=== PATIENT | female | born 1955 | race Caucasian/White ===

== ENCOUNTER 2017-12-31 06:09 | Day surgery (SDC) | payer BC ==
[~2017-12-31] VITALS: Ht 162.6 cm; Wt 62.4 kg
[~2017-12-31 06:09] MED LIST: EXEM25 PO; SIMV40 PO
[2017-12-31] MEDS ORDERED: LOSA50 PO (06:44)
[2017-12-31] MEDS ORDERED: MYCOPHENOLATE250 MG PO (06:45)
[2017-12-31] MEDS ORDERED: Omeprazole20 M1 (06:45)
== END 2017-12-31 08:40 | disposition home or self-care (01) ==
LOC: ORSCSDS 06:09
PROVIDERS: Orthopaedic Surgery
PROC: 0LN70ZZ Release Right Hand Tendon, Open Approach (ICD-10-PCS; principal; 2017-12-31 07:30)
DX: M65.331 Trigger finger, right middle finger (principal); M65.341 Trigger finger, right ring finger; I10 Essential (primary) hypertension; F17.210 Nicotine dependence, cigarettes, uncomplicated; K21.9 Gastro-esophageal reflux disease without esophagitis; Z79.899 Other long term (current) drug therapy
CPT/HCPCS: J0171; J2250; J3010; J7120

== ENCOUNTER → 2019-03-04 | Outpatient (CLI) | payer BC ==
[~2019-03-04] MED LIST changes: +ACET325 PO; +ASPI81CH PO; +IBUP400 PO; +LOSA50 PO; +MYCOPHENOLATE250 MG PO; +Omeprazole20 M1 PO
[2019-03-04 12:49] LABS: BASOPHILS ABSOLUTE AUTO 0.02 K/mm3 (0.00-0.23); BASOPHILS PERCENT AUTO 0 % (0-2); EOSINOPHILS ABSOLUTE AUTO 0.03 K/mm3 (0.00-0.68); EOSINOPHILS PERCENT AUTO 0 % (0-6); Hematocrit 40.5 % (33.0-51.0); Hemoglobin 13.4 g/dL (11.5-16.0); IMMATURE GRAN ABSOLUTE AUTO 0.03 K/mm3 (0.00-0.10); IMMATURE GRAN PERCENT AUTO 0 % (0-1); LYMPHOCYTES ABSOLUTE AUTO 1.54 K/mm3 (0.84-5.20); LYMPHOCYTES PERCENT AUTO 17 % (21-46); MONOCYTES ABSOLUTE AUTO 0.76 K/mm3 (0.16-1.47); MONOCYTES PERCENT AUTO 8 % (4-13); Mean Corpuscular HGB 31.8 pg (26.0-34.0); Mean Corpuscular HGB Conc 33.1 g/dL (31.5-36.5); Mean Corpuscular Volume 96 fL (80-100); Mean Platelet Volume 10.7 fL (9.1-12.4); NEUTROPHILS ABSOLUTE AUTO 6.64 K/mm3 (1.96-9.15); NEUTROPHILS PERCENT AUTO 74 % (41-73); Platelet Count 210 K/mm3 (150-400); RDW Coefficient Variation 11.9 % (11.7-14.2); RDW Standard Deviation 41.8 fL (35.1-46.3); Red Blood Cell Count 4.21 M/mm3 (3.80-5.20); White Blood Cell Count 9.02 K/mm3 (4.00-11.30)
[2019-03-04 13:07] LABS: Anion Gap 11 mmol/L (6-16); Blood Urea Nitrogen 12 mg/dL (8-24); Bun/Creatinine Ratio 11.4 (12.0-20.0); CO2, Blood 25 mmol/L (21-32); Calcium, Blood 8.6 mg/dL (8.5-10.1); Chloride, Blood 104 mmol/L (98-108); Creatinine, Blood 1.05 mg/dL (0.40-1.00); Glomerular Filtration Rate 53 (60-); Glucose, Blood 117 mg/dL (70-99); Potassium, Blood 3.2 mmol/L (3.5-5.5); Sodium, Blood 140 mmol/L (136-145); Troponin I <0.017 ng/mL (0.000-0.040)
== END | disposition home or self-care (01) ==
LOC: LAB SHORT 12:42 → LAB EV 12:42
PROVIDERS: Physician Assistant Surgical
DX: R07.81 Pleurodynia (principal)
CPT/HCPCS: 80048; 84484; 85025; 85379

== ENCOUNTER → 2020-01-04 | Outpatient (CLI) | payer BC ==
[~2020-01-04] MED LIST changes: +LOSARTAN POTAS100 M1 PO; +ZOCOR20 MG PO
== END | disposition home or self-care (01) ==
LOC: LAB 13:05 → LAB SHORT 13:05
DX: L03.115 Cellulitis of right lower limb (principal); L02.415 Cutaneous abscess of right lower limb
CPT/HCPCS: 87070; 87205

== ENCOUNTER 2020-05-28 18:46 | Inpatient (IN) | payer BC, MEDICARE ==
[~2020-05-28] VITALS: Ht 157.5 cm; Wt 61.2 kg
[~2020-05-28 18:46] MED LIST changes: -ACIDOPHILUS1 EAC1 PO; -CIPR500 PO; -HYDR1TAB94 PO; -METR500 PO; -MIRALAX17 G3 PO; -ONDA4ODT PO
[2020-05-28 20:47] LABS: Source, Urine Clean Catch
[2020-05-28 20:52] LABS: BASOPHILS ABSOLUTE AUTO 0.04 K/mm3 (0.00-0.23); BASOPHILS PERCENT AUTO 0 % (0-2); EOSINOPHILS ABSOLUTE AUTO 0.02 K/mm3 (0.00-0.68); EOSINOPHILS PERCENT AUTO 0 % (0-6); Hematocrit 45.8 % (33.0-51.0); Hemoglobin 14.9 g/dL (11.5-16.0); IMMATURE GRAN ABSOLUTE AUTO 0.04 K/mm3 (0.00-0.10); IMMATURE GRAN PERCENT AUTO 0 % (0-1); LYMPHOCYTES PERCENT AUTO 12 % (21-46); MONOCYTES ABSOLUTE AUTO 0.66 K/mm3 (0.16-1.47); MONOCYTES PERCENT AUTO 5 % (4-13); Mean Corpuscular HGB 30.7 pg (26.0-34.0); Mean Corpuscular HGB Conc 32.5 g/dL (31.5-36.5); Mean Corpuscular Volume 94 fL (80-100); NEUTROPHILS ABSOLUTE AUTO 12.11 K/mm3 (1.96-9.15); NEUTROPHILS PERCENT AUTO 83 % (41-73); Platelet Count 284 K/mm3 (150-400); RDW Coefficient Variation 12.5 % (11.7-14.2); RDW Standard Deviation 43.1 fL (35.1-46.3); Red Blood Cell Count 4.86 M/mm3 (3.80-5.20); White Blood Cell Count 14.57 K/mm3 (4.00-11.30)
[2020-05-28 20:55] LABS: Appearance, Urine Clear (Clear); Bilirubin, Urine Neg (Neg); Blood, Urine 3+ (Neg); Color, Urine Yellow (P-Yellow); Glucose Qualitative, Urine Neg (Neg); Ketones, Urine Neg (Neg); Leukocyte Esterase, Urine 3+ (Neg); Nitrite, Urine Neg (Neg); Protein, Urine Neg (Neg); Urobilinogen, Urine NORM (Normal)
[2020-05-28 21:29] LABS: Bacteria Few /hpf; Mucus Light (0-Heavy); Squamous Epithelial Cells Few /hpf (Few)
[2020-05-28 21:33] LABS: Alanine Aminotransfer (ALT/SGP 18 U/L (12-78); Albumin, Blood 3.6 g/dL (3.4-5.0); Alk Phos 96 U/L (50-136); Anion Gap 5 mmol/L (6-16); Aspartate Aminotrans (AST/SGOT 28 U/L (12-37); Bilirubin, Total 0.5 mg/dL (0.1-1.0); Blood Urea Nitrogen 12 mg/dL (8-24); Bun/Creatinine Ratio 13.4 (12.0-20.0); CO2, Blood 27 mmol/L (21-32); Calcium, Blood 8.9 mg/dL (8.5-10.1); Chloride, Blood 110 mmol/L (98-108); Creatinine, Blood 0.89 mg/dL (0.40-1.00); Globulin, Blood 3.7 g/dL (2.2-4.0); Glomerular Filtration Rate >60 (60-); Glucose, Blood 106 mg/dL (70-99); Potassium, Blood 4.3 mmol/L (3.5-5.5); Sodium, Blood 142 mmol/L (136-145); Total Protein, Blood 7.3 g/dL (6.4-8.2)
--- NOTE | 2020-05-29 03:40 | NUR ---
PT ADMITTED FROM ER FOR DIVERTICULITIS AT APPROX 0240. DENIES PAIN UPON ARRIVAL BUT REPORTS HAVING SEVERE PAIN SINCE WEDNESDAY. DENIES N/V. VSS. LABETOLOL AVIALABLE PER EMAR FOR SBP >160. TELE APPLIED AND PT NSR AT [address] F[address]ER. IVF INFUSING PER EMAR. PLAN FOR PT TO BE NPO AND RECIEVE IV ABX PER ORDERS. PT INDEPENDENT IN ROOM.
[2020-05-29 04:47] LABS: BASOPHILS ABSOLUTE AUTO 0.03 K/mm3 (0.00-0.23); BASOPHILS PERCENT AUTO 0 % (0-2); EOSINOPHILS ABSOLUTE AUTO 0.01 K/mm3 (0.00-0.68); EOSINOPHILS PERCENT AUTO 0 % (0-6); Hematocrit 38.8 % (33.0-51.0); Hemoglobin 12.3 g/dL (11.5-16.0); IMMATURE GRAN ABSOLUTE AUTO 0.02 K/mm3 (0.00-0.10); IMMATURE GRAN PERCENT AUTO 0 % (0-1); LYMPHOCYTES ABSOLUTE AUTO 1.06 K/mm3 (0.84-5.20); LYMPHOCYTES PERCENT AUTO 12 % (21-46); MONOCYTES ABSOLUTE AUTO 0.63 K/mm3 (0.16-1.47); MONOCYTES PERCENT AUTO 7 % (4-13); Mean Corpuscular HGB 30.8 pg (26.0-34.0); Mean Corpuscular HGB Conc 31.7 g/dL (31.5-36.5); Mean Corpuscular Volume 97 fL (80-100); Mean Platelet Volume 10.1 fL (9.1-12.4); NEUTROPHILS ABSOLUTE AUTO 7.07 K/mm3 (1.96-9.15); NEUTROPHILS PERCENT AUTO 80 % (41-73); Platelet Count 226 K/mm3 (150-400); RDW Coefficient Variation 12.4 % (11.7-14.2); RDW Standard Deviation 44.7 fL (35.1-46.3); Red Blood Cell Count 3.99 M/mm3 (3.80-5.20); White Blood Cell Count 8.82 K/mm3 (4.00-11.30)
[2020-05-29 05:15] LABS: Anion Gap 6 mmol/L (6-16); Blood Urea Nitrogen 11 mg/dL (8-24); Bun/Creatinine Ratio 13.6 (12.0-20.0); CO2, Blood 25 mmol/L (21-32); Calcium, Blood 8.3 mg/dL (8.5-10.1); Chloride, Blood 110 mmol/L (98-108); Creatinine, Blood 0.81 mg/dL (0.40-1.00); Glomerular Filtration Rate >60 (60-); Glucose, Blood 121 mg/dL (70-99); Potassium, Blood 3.6 mmol/L (3.5-5.5); Sodium, Blood 141 mmol/L (136-145)
--- NOTE | 2020-05-29 14:31 | NUR ---
DR GRAHAM IN TO SEE PT.
--- NOTE | 2020-05-29 17:52 | NUR ---
SUMMARY NO ACUTE CHANGES T/O SHIFT. MEDICATED PT ONCE DURING SHIFT FOR NAUSEA. ADVANCED TO CLEAR LIQUIDS THIS AFTERNOON. ADVISED TO TAKE DINNER SLOWLY. INDEPENDENT IN ROOM. SPOUSE AT BEDSIDE AT THIS TIME. CALL LIGHT IN REACH.
--- NOTE | 2020-05-30 04:01 | NUR ---
SHIFT SUMMARY PT ADMITTED 2 DAYS AGO FOR DIVERTICULITIS COLON W/ PERF, NON-SURGICAL AND IS BEING TREATED FOR ABX. PT IS INDEPENDT IN ROOM. ABX AND FLUIDS ADMINSTERED DURING SHIFT. PT DENIES PAIN. PT DAPHNIE EATING SLOW, CLEAR LIQ DIET DAPHNIE WELL. DENIES N/V. PT DENIES FEELING BLOATED, AND ABD NON-DISTENDED. SHE DENIES DIZZINESS WHEN GETTING UP THE BATHROOM. UA OUTPUT ADEQUATE. PT DENIES PASSING FLATUS. R AC IV WAS NON-PATENT, DC'D. NEW 20G IV PLACED ON R FOREARM. SHE WAS SLEPT GOOD DURING SHIFT. CALL LIGHT W/IN REACH.
[2020-05-30 05:03] LABS: Hematocrit 36.9 % (33.0-51.0); Hemoglobin 11.9 g/dL (11.5-16.0); Mean Corpuscular HGB Conc 32.2 g/dL (31.5-36.5); Mean Corpuscular Volume 96 fL (80-100); Mean Platelet Volume 10.2 fL (9.1-12.4); Platelet Count 203 K/mm3 (150-400); RDW Coefficient Variation 12.5 % (11.7-14.2); Red Blood Cell Count 3.84 M/mm3 (3.80-5.20); White Blood Cell Count 6.46 K/mm3 (4.00-11.30)
[2020-05-30 05:23] LABS: Albumin, Blood 2.9 g/dL (3.4-5.0); Anion Gap 7 mmol/L (6-16); Blood Urea Nitrogen 8 mg/dL (8-24); Bun/Creatinine Ratio 9.8 (12.0-20.0); CO2, Blood 23 mmol/L (21-32); Chloride, Blood 113 mmol/L (98-108); Creatinine, Blood 0.81 mg/dL (0.40-1.00); Glomerular Filtration Rate >60 (60-); Glucose, Blood 93 mg/dL (70-99); Phosphorus, Blood 2.6 mg/dL (2.5-4.9); Potassium, Blood 3.7 mmol/L (3.5-5.5); Sodium, Blood 143 mmol/L (136-145)
[2020-05-30] MEDS ORDERED: ACIDOPHILUS1 EAC1 PO (11:28)
[2020-05-30] MEDS ORDERED: CIPR500 PO (11:28)
[2020-05-30] MEDS ORDERED: METR500 PO (11:30)
[2020-05-30] MEDS ORDERED: HYDR1TAB94 PO (11:30)
[2020-05-30] MEDS ORDERED: ONDA4ODT PO (11:32)
[2020-05-30] MEDS ORDERED: MIRALAX17 G3 PO (11:33)
--- NOTE | 2020-05-30 12:46 | NUR ---
DISCHARGE NOTE: PATIENT WAS EDUCATED ON DISCHARGE INSTRUCTIONS. PT VERBALIZED THAT SHE UNDERSTOOD INSTRUCTIONS. VITAL SIGNS ARE WNL AND IS ON RA. IV WAS TAKEN OUT WNL. ALERT AND ORIENTED X4. TOLERATING PO AND VOIDING. PT REPORTS NO PAIN BUT WAS GIVEN HER HARD PAIN PERSCRIPTION IN HER DISCHARGE PACKET. PT IS DRESSED IN HER CLOTHES SHE WORE INTO THE HOSPITAL. SHE IS WAITING FOR HER RIDE TO BE HERE AROUND 1300. SHE STATES THAT SHE WILL WALK OUT. SHE HAS BEEN PLEASANT TO DEAL WITH.
--- NOTE | 2020-05-30 15:35 | NUR ---
CALLED [facility] PRESCRIPTION IN TO [facility] PER DR SMITH'S PHONE ORDER. BACTRIM DS 1 TAB PO BID X 13 DAYS.
== END 2020-05-30 14:00 | disposition home or self-care (01) | DRG 872 ==
LOC: ER 18:46 → SURS 18:47 → ERHOLD 18:47 → SURS 05-29 02:33
PROVIDERS: Internal Medicine; Nurse Practitioner Acute Care; Physician Assistant; ADMIT Family Medicine
DX: A41.9 Sepsis, unspecified organism (principal); K57.20 Diverticulitis of large intestine with perforation and abscess without bleeding; E78.5 Hyperlipidemia, unspecified; G70.00 Myasthenia gravis without (acute) exacerbation; I10 Essential (primary) hypertension; K21.9 Gastro-esophageal reflux disease without esophagitis; Z85.3 Personal history of malignant neoplasm of breast; Z20.828 Contact with and (suspected) exposure to other viral communicable diseases
CPT/HCPCS: 36415; 74176; 80048; 80053; 80069; 81001; 83690; 85025; 85027; 87086; 94760; 96361; 96365; 96366; 96368; 96375; 96376; 99285-25; C9113; J0744; J1170; J2405; J3480; J7030

== ENCOUNTER → 2020-05-28 | Outpatient (CLI) | payer BC ==
[~2020-05-28] MED LIST changes: +ACIDOPHILUS1 EAC1 PO; +CIPR500 PO; +HYDR1TAB94 PO; +METR500 PO; +MIRALAX17 G3 PO; +ONDA4ODT PO
[2020-05-28 18:21] LABS: BASOPHILS ABSOLUTE AUTO 0.04 K/mm3 (0.00-0.23); BASOPHILS PERCENT AUTO 0 % (0-2); EOSINOPHILS ABSOLUTE AUTO 0.03 K/mm3 (0.00-0.68); EOSINOPHILS PERCENT AUTO 0 % (0-6); Hematocrit 43.7 % (33.0-51.0); Hemoglobin 14.7 g/dL (11.5-16.0); IMMATURE GRAN ABSOLUTE AUTO 0.05 K/mm3 (0.00-0.10); IMMATURE GRAN PERCENT AUTO 0 % (0-1); LYMPHOCYTES ABSOLUTE AUTO 1.23 K/mm3 (0.84-5.20); LYMPHOCYTES PERCENT AUTO 9 % (21-46); MONOCYTES ABSOLUTE AUTO 0.64 K/mm3 (0.16-1.47); MONOCYTES PERCENT AUTO 5 % (4-13); Mean Corpuscular HGB 31.2 pg (26.0-34.0); Mean Corpuscular HGB Conc 33.6 g/dL (31.5-36.5); Mean Corpuscular Volume 93 fL (80-100); NEUTROPHILS ABSOLUTE AUTO 11.22 K/mm3 (1.96-9.15); NEUTROPHILS PERCENT AUTO 85 % (41-73); Platelet Count 276 K/mm3 (150-400); RDW Coefficient Variation 12.6 % (11.7-14.2); RDW Standard Deviation 42.8 fL (35.1-46.3); Red Blood Cell Count 4.71 M/mm3 (3.80-5.20); White Blood Cell Count 13.21 K/mm3 (4.00-11.30)
== END | disposition home or self-care (01) ==
LOC: LAB SHORT 18:16 → LAB EV 18:16
PROVIDERS: Physician Assistant
DX: R10.31 Right lower quadrant pain (principal)
CPT/HCPCS: 85025

== ENCOUNTER → 2020-06-10 | Outpatient (CLI) | payer BC ==
[~2020-06-10] MED LIST changes: +ACIDOPHILUS1 EAC1 PO; +CIPR500 PO; +HYDR1TAB94 PO; +METR500 PO; +MIRALAX17 G3 PO; +ONDA4ODT PO
[2020-06-10 09:28] LABS: Source, Urine Clean Catch
[2020-06-10 09:53] LABS: Bilirubin, Urine Neg (Neg); Blood, Urine 1+ (Neg); Glucose Qualitative, Urine Neg (Neg); Ketones, Urine Neg (Neg); Leukocyte Esterase, Urine 1+ (Neg); Nitrite, Urine Neg (Neg); Protein, Urine Neg (Neg); Specific Gravity, Urine 1.015 (1.003-1.022); Urobilinogen, Urine NORM (Normal)
[2020-06-10 10:07] LABS: Appearance, Urine Clear (Clear); Color, Urine Yellow (P-Yellow)
[2020-06-10 10:09] LABS: Bacteria Few /hpf; Red Blood Cells, Urine 0-2 /hpf (0-2); Squamous Epithelial Cells Few /hpf (Few); White Blood Cells, Urine 0-2 /hpf (0-5)
[2020-06-10 10:10] LABS: Transitional Epithelial Cells Rare /hpf (0-Rare)
== END | disposition home or self-care (01) ==
LOC: LAB 09:27 → LAB SHORT 09:27
PROVIDERS: Internal Medicine
DX: R82.90 Unspecified abnormal findings in urine (principal)
CPT/HCPCS: 81001; 87086

== ENCOUNTER → 2020-10-28 | Outpatient (CLI) | payer BC | END | disposition home or self-care (01) | LOC: LAB SHORT 08:29 | DX: C44.722 Squamous cell carcinoma of skin of right lower limb, including hip (principal) | CPT/HCPCS: 88305 ==

== ENCOUNTER → 2021-04-09 | Outpatient (CLI) | payer BC ==
[2021-04-09 09:45] LABS: Source, Urine Clean Catch
[2021-04-09 13:17] LABS: Appearance, Urine Clear (Clear); Bilirubin, Urine Neg (Neg); Blood, Urine 1+ (Neg); Color, Urine Yellow (P-Yellow); Glucose Qualitative, Urine Neg (Neg); Ketones, Urine Neg (Neg); Leukocyte Esterase, Urine Neg (Neg); Nitrite, Urine Neg (Neg); Protein, Urine Neg (Neg); Specific Gravity, Urine 1.015 (1.003-1.022); Urobilinogen, Urine NORM (Normal)
[2021-04-09 13:40] LABS: White Blood Cells, Urine 0-2 /hpf (0-5)
[2021-04-09 13:43] LABS: Bacteria Rare /hpf
[2021-04-09 13:48] LABS: Red Blood Cells, Urine 0-2 /hpf (0-2); Squamous Epithelial Cells Rare /hpf (Few)
[2021-04-09 13:50] LABS: Mucus Light (0-Heavy)
== END | disposition home or self-care (01) ==
LOC: LAB SHORT 09:42 → LAB 09:42 → LAB FUT 09-05 09:55
PROVIDERS: Internal Medicine
DX: R31.29 Other microscopic hematuria (principal)
CPT/HCPCS: 81001

== ENCOUNTER → 2021-11-11 | Outpatient (CLI) | payer BC | END | disposition home or self-care (01) | LOC: LAB SHORT 11:04 → PLD 11:04 | DX: D03.59 Melanoma in situ of other part of trunk (principal) | CPT/HCPCS: 88305 ==

== ENCOUNTER → 2021-11-20 | Outpatient (CLI) | payer BC | END | disposition home or self-care (01) | LOC: LAB 14:53 → LAB SHORT 14:53 → PLD 14:53 | DX: D03.59 Melanoma in situ of other part of trunk (principal) | CPT/HCPCS: 88305 ==

== ENCOUNTER → 2021-12-24 | Outpatient (CLI) | payer BC | END | disposition home or self-care (01) | LOC: LAB SHORT 14:40 → LAB 14:40 | DX: L08.0 Pyoderma (principal) | CPT/HCPCS: 87070; 87077; 87147; 87186; 87205 ==

== ENCOUNTER → 2022-02-19 | Outpatient (CLI) | payer BC | END | disposition home or self-care (01) | LOC: LAB SHORT 12:45 → PLD 12:45 | DX: D22.72 Melanocytic nevi of left lower limb, including hip (principal) | CPT/HCPCS: 88305 ==

== ENCOUNTER → 2022-06-09 | Outpatient (CLI) | payer BC | END | disposition home or self-care (01) | LOC: LAB SHORT 11:17 | DX: D22.61 Melanocytic nevi of right upper limb, including shoulder (principal) | CPT/HCPCS: 88305 ==